=== PATIENT | female | born 1985 | race Caucasian/White ===

== ENCOUNTER 2017-04-13 08:38 | Emergency (ER) | payer MEDICAID, OTHER | END 2017-04-13 12:50 | disposition home or self-care (01) | LOC: FTE 08:38 | DX: S62.614A Displaced fracture of proximal phalanx of right ring finger, initial encounter for closed fracture (principal); W18.39XA Other fall on same level, initial encounter; Y92.9 Unspecified place or not applicable; Z87.891 Personal history of nicotine dependence | CPT/HCPCS: 29125; 73130-RT; 99283-25 ==